=== PATIENT | female | born 1995 | race Caucasian/White ===

== ENCOUNTER 2017-04-30 23:30 | Inpatient (IN) | payer OTHER ==
[2017-05-01] MEDS ORDERED: LACTATED RINGER'S 1,000 ML IV (00:19)
[2017-05-01] MEDS ORDERED: IBUPROFEN 600 MG TAB PO (00:30)
[2017-05-01] MEDS ORDERED: BUTORPHANOL 2 MG INJ IV (00:30)
[2017-05-01] MEDS ORDERED: METHYLERGONOVINE 0.2 MG INJ IM (00:30)
[2017-05-01] MEDS ORDERED: OXYTOCIN 30 UNITS/LR 500 ML IV (00:30)
[2017-05-01 00:53] LABS: ADD MAN DIFF? NO
[2017-05-01 00:56] LABS: WHITE BLOOD COUNT 11.6 10^3/ul (4.8-10.8)
[2017-05-01 00:56] LABS: BASOPHILS % 0.3 % (0.0-2.0); EOSINOPHILS # 0.1 10^3/ul (0.0-0.5); EOSINOPHILS % 0.7 % (0.0-7.0); HEMATOCRIT 32.7 % (37.0-47.0); HEMOGLOBIN 11.2 g/dl (12.0-16.0); LYMPHOCYTES # 3.2 10^3/ul (0.8-2.9); LYMPHOCYTES % 27.1 % (15.0-51.0); MEAN CORPUSCULAR HGB CONC 34.3 g/dl (32.0-37.0); MEAN CORPUSCULAR VOLUME 90.6 fl (82.0-101.0); MEAN PLATELET VOLUME 11.2 fl (7.4-10.4); MONOCYTE # 0.8 10^3/ul (0.3-0.9); MONOCYTES % 7.2 % (0.0-11.0); NEUTROPHIL # 7.4 10^3/ul (1.6-7.5); NEUTROPHILS % 63.9 % (39.0-77.0); PLATELET COUNT 177 10^3/UL (140-415); RED BLOOD COUNT 3.61 10^6/ul (4.20-5.40); RED CELL DISTRIBUTION WIDTH 13.6 % (11.5-14.5)
[2017-05-01] MEDS: LACTATED RINGER'S 1,000 ML IV ×3 (01:05→17:01)
[2017-05-01] MEDS: AMPICILLIN 2 GM/NS (PMX) 100 ML IV (01:09)
[2017-05-01 01:23] LABS: ALANINE AMINOTRANSFERASE 33 IU/L (13-69); ALBUMIN 3.4 g/dl (3.3-4.9); ALBUMIN/GLOBULIN RATIO 1.09; ALKALINE PHOSPHATASE 200 IU/L (42-121); ANION GAP 13 (8-16); ASPARTATE AMINO TRANSFERASE 25 IU/L (15-46); BILIRUBIN,INDIRECT 0.1 mg/dl (0-1.1); BILIRUBIN,TOTAL 0.1 mg/dl (0.2-1.3); BLOOD UREA NITROGEN 9 mg/dl (7-20); CALCIUM 9.1 mg/dl (8.4-10.2); CARBON DIOXIDE 21 mmol/L (21-31); CHLORIDE 106 mmol/L (97-110); CREATININE 0.65 mg/dl (0.44-1.00); GLUCOSE 84 mg/dl (70-220); POTASSIUM 3.9 mmol/L (3.5-5.1); SODIUM 136 mmol/L (135-144); TOTAL PROTEIN 6.5 g/dl (6.1-8.1); URIC ACID 5.3 mg/dl (3.1-7.9)
[2017-05-01 01:34] LABS: INR 0.86; PROTIME 11.8 Sec (11.9-14.9); PT RATIO 0.9
[2017-05-01 01:53] LABS: HEPATITIS B SURFACE ANTIGEN NEGATIVE (NEGATIVE)
[2017-05-01 03:12] LABS: ADD UMIC YES; UR ASCORBIC ACID NEGATIVE (NEGATIVE); UR BACTERIA FEW /HPF (NONE SEEN); UR BILIRUBIN (Dip) NEGATIVE (NEGATIVE); UR BLOOD (Dip) 3+ mg/dL (NEGATIVE); UR CLARITY SLIGHTLY CLOUDY (CLEAR); UR COLOR YELLOW (YELLOW); UR GLUCOSE (Dip) NEGATIVE (NEGATIVE); UR KETONES (Dip) NEGATIVE (NEGATIVE); UR LEUKOCYTE ESTERASE (Dip) 2+ Leu/ul (NEGATIVE); UR NITRITE (Dip) NEGATIVE (NEGATIVE); UR RBC 130 /HPF (0-5); UR SPECIFIC GRAVITY (Dip) 1.012 (1.003-1.030); UR SQUAMOUS EPITHELIAL CELL FEW /HPF (FEW); UR TOTAL PROTEIN (Dip) 1+ mg/dl (NEGATIVE); UR UROBILINOGEN (Dip) NEGATIVE (NEGATIVE); UR WBC 63 /HPF (0-5)
[2017-05-01] MEDS: AMPICILLIN 1 GM/NS (PMX) 50 ML IV ×5 (05:01→20:48)
[2017-05-01 16:21] LABS: RAPID PLASMA REAGIN NONREACTIVE (NR)
[2017-05-01] MEDS: LIDOCAINE 1% (MPF) 30 ML INJ INJ (22:47)
[2017-05-01] MEDS: OXYTOCIN 30 UNITS/LR 500 ML IV (22:59)
[2017-05-01 23:15] LABS: CBV Base Excess -9.2 mmol/L; CBV COHb 1.1 %; CBV Oxygen Sat 54.8 mmHG; CBV Total Hemglobin 16.6 g/dl; Cord Blood Venous pO2 28.2 mmHG (15.0-45.0); Fraction OxyHgb Cord Venous 53.4 %; MODE ROOM AIR; MetHgb Cord Venous 1.5 %; Sample Type Blood venous; Site CORD
[2017-05-01 23:16] LABS: Arterial Cord Blood pCO2 60.6 mmHG (25-50); CBA Base Excess -10.5 mmol/L; CBA COHb 0.2 %; CBA Total Hemglobin 15.8 g/dl; Cord Blood Arterial pO2 16.2 mmHG (15.0-45.0); Fraction OxyHgb Cord Arterial 19.6 %; MODE ROOM AIR; Site CORD
[2017-05-01] MEDS: CARBOPROST 250 MCG INJ IM (23:36)
[2017-05-01] MEDS: MISOPROSTOL 200 MCG TAB PR (23:44)
[2017-05-02] MEDS: LACTATED RINGER'S 1,000 ML IV (00:19)
[2017-05-02] MEDS: AMPICILLIN 1 GM/NS (PMX) 50 ML IV (00:30)
[2017-05-02] MEDS: LABETALOL 100 MG TAB PO ×3 (00:36→21:00)
[2017-05-02] MEDS: HYDROCODONE/APAP (5/325) TAB PO (01:18)
[2017-05-02 01:27] LABS: ADD MAN DIFF? NO
[2017-05-02 01:31] LABS: ABNORMAL IP MESSAGE 1; BASOPHILS % 0.1 % (0.0-2.0); HEMATOCRIT 33.6 % (37.0-47.0); HEMOGLOBIN 11.6 g/dl (12.0-16.0); LYMPHOCYTES # 1.4 10^3/ul (0.8-2.9); LYMPHOCYTES % 5.9 % (15.0-51.0); MEAN CORPUSCULAR HEMOGLOBIN 31.4 pg (29.0-33.0); MEAN CORPUSCULAR HGB CONC 34.5 g/dl (32.0-37.0); MEAN CORPUSCULAR VOLUME 90.8 fl (82.0-101.0); MEAN PLATELET VOLUME 11.6 fl (7.4-10.4); MONOCYTES % 4.5 % (0.0-11.0); NEUTROPHIL # 20.7 10^3/ul (1.6-7.5); NEUTROPHILS % 88.9 % (39.0-77.0); PLATELET COUNT 184 10^3/UL (140-415); RED CELL DISTRIBUTION WIDTH 13.7 % (11.5-14.5)
[2017-05-02 01:31] LABS: WHITE BLOOD COUNT 23.2 10^3/ul (4.8-10.8)
[2017-05-02 01:50] LABS: INR 0.92; PARTIAL THROMBOPLASTIN TIME 28.7 Sec (25.0-35.0); PROTIME 12.4 Sec (11.9-14.9)
[2017-05-02 01:52] LABS: ALANINE AMINOTRANSFERASE 32 IU/L (13-69); ALBUMIN 3.3 g/dl (3.3-4.9); ALBUMIN/GLOBULIN RATIO 0.97; ALKALINE PHOSPHATASE 214 IU/L (42-121); ANION GAP 13 (8-16); ASPARTATE AMINO TRANSFERASE 33 IU/L (15-46); BILIRUBIN,INDIRECT 0.4 mg/dl (0-1.1); BILIRUBIN,TOTAL 0.4 mg/dl (0.2-1.3); BLOOD UREA NITROGEN 8 mg/dl (7-20); CALCIUM 9.6 mg/dl (8.4-10.2); CARBON DIOXIDE 21 mmol/L (21-31); CHLORIDE 109 mmol/L (97-110); CREATININE 0.64 mg/dl (0.44-1.00); GLUCOSE 112 mg/dl (70-220); POTASSIUM 3.5 mmol/L (3.5-5.1); SODIUM 139 mmol/L (135-144); TOTAL PROTEIN 6.7 g/dl (6.1-8.1); URIC ACID 7.7 mg/dl (3.1-7.9)
[2017-05-02 01:53] LABS: POSITIVE DIFF @See below
[2017-05-02 02:15] LABS: ADD UMIC YES; UR ASCORBIC ACID NEGATIVE (NEGATIVE); UR BILIRUBIN (Dip) NEGATIVE (NEGATIVE); UR BLOOD (Dip) NEGATIVE (NEGATIVE); UR CLARITY CLEAR (CLEAR); UR COLOR YELLOW (YELLOW); UR GLUCOSE (Dip) NEGATIVE (NEGATIVE); UR KETONES (Dip) 2+ mg/dL (NEGATIVE); UR LEUKOCYTE ESTERASE (Dip) NEGATIVE Leu/ul (NEGATIVE); UR NITRITE (Dip) NEGATIVE (NEGATIVE); UR RBC 0 /HPF (0-5); UR SPECIFIC GRAVITY (Dip) 1.014 (1.003-1.030); UR TOTAL PROTEIN (Dip) 2+ mg/dl (NEGATIVE); UR UROBILINOGEN (Dip) NEGATIVE (NEGATIVE); UR WBC 1 /HPF (0-5)
[2017-05-02] MEDS: OXYCODONE/ASPIRIN (4.88/325) TAB PO (02:20)
[2017-05-02] MEDS ORDERED: LANOLIN 7 GM TUBE TOP (04:00)
[2017-05-02] MEDS ORDERED: OXYTOCIN 30 UNITS/LR 500 ML IV (04:00)
[2017-05-02] MEDS ORDERED: ONDANSETRON 4 MG INJ IV (04:00)
[2017-05-02] MEDS ORDERED: CARBOPROST 250 MCG INJ IM (04:00)
[2017-05-02] MEDS ORDERED: MISOPROSTOL 200 MCG TAB PR (04:00)
[2017-05-02] MEDS ORDERED: ACETAMINOPHEN 325 MG TAB PO (04:00)
[2017-05-02] MEDS ORDERED: DIPHENHYDRAMINE 25 MG CAP PO (04:00)
[2017-05-02] MEDS ORDERED: ZOLPIDEM 5 MG TAB PO (04:00)
[2017-05-02] MEDS ORDERED: morphine 2 MG INJ IV (04:00)
[2017-05-02] MEDS: OXYTOCIN 30 UNITS/LR 500 ML IV ×2 (04:27)
[2017-05-02] MEDS: IBUPROFEN 600 MG TAB PO ×4 (06:37→23:58)
[2017-05-02] MEDS: WITCH HAZEL/GLYCERIN PAD PR (06:47)
[2017-05-02] MEDS: SENNA/DOCUSATE NA (8.6MG/50MG) TAB PO ×2 (09:00→21:22)
[2017-05-02 09:37] LABS: HEMATOCRIT 28.6 % (37.0-47.0); HEMOGLOBIN 9.7 g/dl (12.0-16.0)
[2017-05-03] MEDS: INFLUENZA VIRUS VACCINE 0.5 ML SYG IM*
[2017-05-03] MEDS: IBUPROFEN 600 MG TAB PO ×2 (06:05→12:05)
[2017-05-03] MEDS: SENNA/DOCUSATE NA (8.6MG/50MG) TAB PO (09:00)
[2017-05-03] MEDS: LABETALOL 100 MG TAB PO (09:00)
[2017-05-03] MEDS: DIPHTH/TET/ACEL PERTUSS (ADULT) 0.5 ML VIAL IM* (12:06)
[2017-05-03] MEDS ORDERED: INFLUENZA VIRUS VACCINE 0.5 ML SYG IM* (14:00)
== END 2017-05-03 13:50 | disposition home or self-care (01) | DRG 775 ==
LOC: OBT 23:30 → PP1 05-02 03:33 → L-D 23:31
PROC: 10E0XZZ Delivery of Products of Conception, External Approach (ICD-10-PCS; principal; 2017-05-01)
PROC: 0KQM0ZZ Repair Perineum Muscle, Open Approach (ICD-10-PCS; 2017-05-01)
PROC: 3E033VJ Introduction of Other Hormone into Peripheral Vein, Percutaneous Approach (ICD-10-PCS; 2017-05-01)
DX: O69.81X0 Labor and delivery complicated by cord around neck, without compression, not applicable or unspecified (principal); O70.1 Second degree perineal laceration during delivery; Z37.0 Single live birth; Z3A.37 37 weeks gestation of pregnancy
CPT/HCPCS: 36415; 36600; 80053; 81001; 82803; 84560; 85014; 85018; 85025; 85384; 85610; 85730; 86592; 86900; 86901; 87340; 88307; 90686; 90715; 99464

== ENCOUNTER 2018-08-27 09:16 | Emergency (ER) | payer OTHER ==
[2018-08-27] MEDS: KETOROLAC 60 MG INJ IM (10:40)
== END 2018-08-27 11:59 | disposition home or self-care (01) ==
LOC: FTE 09:16
DX: M54.9 Dorsalgia, unspecified (principal)
CPT/HCPCS: 81025; 96372; 99284-25

== ENCOUNTER 2018-10-13 07:25 | Emergency (ER) | payer OTHER ==
[2018-10-13] MEDS: DEXAMETHASONE 10 MG/ML 1 ML INJ IM (08:00)
[2018-10-13] MEDS: DIAZEPAM 5 MG TAB PO (08:00)
[2018-10-13] MEDS: KETOROLAC 60 MG INJ IM (08:14)
== END 2018-10-13 08:17 | disposition home or self-care (01) ==
LOC: FTE 07:25
DX: M79.671 Pain in right foot (principal)
CPT/HCPCS: 81025; 96372; 99284-25